=== PATIENT | male | born 1975 | race Caucasian/White ===

== ENCOUNTER 2023-12-14 21:56 | Emergency (ER) | payer MEDICAID ==
[~2023-12-14] VITALS: Ht 162.6 cm; Wt 130.9 kg
[2023-12-14] MEDS: TETANUS, DIPHTHERIA, PERTUSSIS VAC/PF 0.5ML (>10YR OLD) IM ONE (00:30)
[2023-12-14 22:04] VITALS: O2SAT 100
[2023-12-15 02:15] VITALS: BP 135/75; PULSE 81; RESP 16; TEMP 37.00296; O2SAT 99
[2023-12-15] MEDS: BACITRACIN ZINC OINT UDPKT TOP ONE (02:31)
[2023-12-15] MEDS: LIDOCAINE HCL/PF 1% 10 MG/ML 5ML VIAL INFIL ONE (02:31)
[2023-12-15] MEDS ORDERED: BO1 TP (02:40)
== END 2023-12-15 03:47 | disposition home or self-care (01) ==
LOC: ER 21:56
DX: S61.211A Laceration without foreign body of left index finger without damage to nail, initial encounter (principal); X58.XXXA Exposure to other specified factors, initial encounter; Y93.89 Activity, other specified; Y92.89 Other specified places as the place of occurrence of the external cause; Y99.8 Other external cause status
CPT/HCPCS: 99283; 12001; 90471; 90715; J3490